=== PATIENT | female | born 1975 | race African-American/Black ===

== ENCOUNTER → 2017-07-02 | Outpatient (CLI) | payer OTHER ==
--- NOTE | ~2017-07-02 | MY29 ---
[facility] A Service of [facility] RADIOLOGY TEXT RESULTS PATIENT: ORLANDO AVILA LOCATION: [facility] : 75 UNIT #: [id number] AGE: [address]: KENIA JOHNSON MD SEX: F ORDER DR: [id number] [place], [place] [address] [id number] O MR#: [id number] Acc #: [id number] NAME: ORLANDO AVILA : 1975 SEX: F STUDY DATE/TIME: 07/02/2017 15:22 UNIT: [facility] ROOM: STUDY DESCRIPTION: [facility] SCREENING W/ CAD BILAT Attending Physician: Kenia Johnson M.D. Referring Physician: Kenia Johnson M.D. Ordering Physician: Kenia Johnson M.D. Primary Care Physician: Gabriel Pat Pa-C MEDICAL IMAGING REPORT This report is preliminary unless electronic signature is present EXAMINATION Bilateral digital screening mammogram with CAD. DATE 07/02/2017 HISTORY No personal or family history of breast cancer or current complaints. COMPARISON Bilateral screening mammogram, 07/02/2016. FINDINGS CC and MLO views were obtained of each breast utilizing digital technique and reviewed with an FDA-approved CAD device. Heterogeneously dense fibroglandular tissue is present bilaterally, unchanged. No new or suspicious nodules identified. No architectural distortion or microcalcification. IMPRESSION BIRADS 2. Benign findings. Routine bilateral screening mammogram is recommended in year. Patients over the age of 40 are entered into a reminder system with target due date for the next mammogram. A result letter will also be sent to the patient. BIRADS: 2 Benign finding. Dictated by... Caridad West M.D. [facility] A Service [facility] RADIOLOGY TEXT RESULTS PATIENT: ORLANDO AVILA LOCATION: [facility] : 75 UNIT #: [id number] AGE: [address]: KENIA JOHNSON MD SEX: F ORDER DR: THIS IS AN ELECTRONICALLY VERIFIED REPORT Caridad West M.D. at 07/05/2017 8:34 AM Dilshad TD: 07/03/2017 06:22 JOB #: [id number] MEDICAL IMAGING REPORT Page 1 of 1 COPY
== END | disposition home or self-care (01) ==
LOC: CWCC 15:10
DX: Z12.31 Encounter for screening mammogram for malignant neoplasm of breast (principal)
CPT/HCPCS: G0202